=== PATIENT | female | born 1990 | race Hispanic/Latino ===

== ENCOUNTER 2021-01-20 17:29 | Inpatient (IN) | payer BC, SELFPAY ==
[2021-01-20] MEDS ORDERED: Lidocaine 1% (PF) 30 ML VIAL SC PRN ×2 (18:09→18:10)
[2021-01-20] MEDS ORDERED: hydrALAZINE 20 MG/ML VIAL SLOW IVP PRN ×2 (18:09→18:10)
[2021-01-20] MEDS ORDERED: NS / Oxytocin 40 units/1000ml 1,000 ML IV PRN ×2 (18:09→18:10)
[2021-01-20] MEDS ORDERED: Ondansetron PF 4 MG/2 ML Vial IVP PRN ×2 (18:09→18:10)
[2021-01-20] MEDS ORDERED: Promethazine HCl 25 MG/ML VIAL IM PRN ×2 (18:09→18:10)
[2021-01-20] MEDS ORDERED: HYDROcodone/Acetaminophen 5/325 mg Tablet PO PRN ×2 (18:10)
[2021-01-20] MEDS ORDERED: Docusate 100 MG CAP PO PRN (18:10)
[2021-01-20] MEDS ORDERED: Carboprost 250 MCG/ML AMP IM PRN (18:10)
[2021-01-20] MEDS ORDERED: Acetaminophen 500 MG TAB PO PRN (18:10)
[2021-01-20] MEDS ORDERED: Zolpidem Tartrate 5 MG TAB PO PRN (18:10)
[2021-01-20] MEDS ORDERED: Ibuprofen 800 MG TAB PO PRN (18:10)
[2021-01-20] MEDS ORDERED: Methylergonovine 0.2 MG/ML VIAL IM PRN (18:10)
[2021-01-20] MEDS ORDERED: Diphenoxylate HCl/Atropine Tablet PO PRN ×2 (18:10)
[2021-01-20] MEDS ORDERED: Misoprostol 200 MCG TAB PR PRN (18:10)
[2021-01-20 19:35] VITALS: BMI 35.6
[2021-01-20 21:11] LABS: Mean Corpuscular HGB CONC 34.4 g/dL (32.0-36.0); Mean Corpuscular Hemoglobin 30.4 pg (27.0-33.0); Mean Corpuscular Volume 88.3 fl (81.6-98.3); Mean Platelet Volume 10.6 fl (7.4-10.4); Platelet Count 396 10x3/uL (150-450); RBC Distribution Width 12.6 % (11.5-14.5); Red Blood Cell (RBC) Count 4.61 10x6/uL (3.90-5.03); White Blood Cell (WBC) Count 10.8 10x3/uL (3.5-10.5)
[2021-01-20 21:43] LABS: Hep B Surf Ag Non-Reactive S/CO (NonReactive); Syphilis Antibody Nonreactive (Nonreactive); Syphilis Antibody Index 0.04 S/CO (<1.00 Non-Reactive)
[2021-01-20] MEDS: Misoprostol 200 MCG TAB SL SCH (23:08)
[2021-01-20] MEDS: Lactated Ringer's 1,000 ML IV SCH (23:08)
[2021-01-21] MEDS: Misoprostol 200 MCG TAB SL SCH ×5 (03:11→18:09)
[2021-01-21] MEDS: Butorphanol Tartrate 1 MG/ML VIAL SLOW IVP PRN ×4 (03:11→08:21)
[2021-01-21] MEDS ORDERED: Ondansetron PF 4 MG/2 ML Vial IVP PRN (09:23)
[2021-01-21] MEDS ORDERED: diphenhydrAMINE 50 MG/ML VIAL IM PRN (09:23)
[2021-01-21] MEDS ORDERED: diphenhydrAMINE 50 MG/ML VIAL IVP PRN (09:23)
[2021-01-21] MEDS ORDERED: diphenhydrAMINE 25 MG CAP PO PRN (09:23)
[2021-01-21] MEDS ORDERED: Zolpidem Tartrate 5 MG TAB PO PRN (09:23)
[2021-01-21] MEDS ORDERED: Promethazine HCl 25 MG/ML VIAL IM PRN (09:23)
[2021-01-21] MEDS ORDERED: Naloxone HCl 0.4 mg/ml Vial IV PRN (09:23)
[2021-01-21] MEDS ORDERED: Communication Order-Pharmacy FS PRN (09:30)
[2021-01-21] MEDS ORDERED: NS w/ Oxytocin 30 units 500 ML ONE (09:53)
[2021-01-21] MEDS ORDERED: fentaNYL Citrate/PF PCA SYRING 50 ML IV PRN (10:03)
[2021-01-21] MEDS: Lactated Ringer's 1,000 ML IV SCH (18:08)
== END 2021-01-21 18:04 | disposition home or self-care (01) | DRG 807 ==
LOC: CSHLD/OP 17:29 → CSHLD 17:30
PROVIDERS: ADMIT Obstetrics & Gynecology; ATTEND Obstetrics & Gynecology
PROC: 10E0XZZ Delivery of Products of Conception, External Approach (ICD-10-PCS; principal; 2021-01-20)
PROC: 3E0P7VZ Introduction of Hormone into Female Reproductive, Via Natural or Artificial Opening (ICD-10-PCS; 2021-01-20)
DX: O36.4XX0 Maternal care for intrauterine death, not applicable or unspecified (principal); Z37.1 Single stillbirth; Z3A.27 27 weeks gestation of pregnancy; O35.8XX0 Maternal care for other (suspected) fetal abnormality and damage, not applicable or unspecified
CPT/HCPCS: 36415; 76815; 85027; 86780; 86850; 86900; 86901; 87340; J0595

== ENCOUNTER 2022-11-23 17:34 | Day surgery (SDC) | payer SELFPAY ==
[2022-11-23] MEDS ORDERED: hydrALAZINE 20 MG/ML VIAL SLOW IVP PRN (18:28)
[2022-11-23 19:20] LABS: Bilirubin Neg (Negative); Blood, Urine Negative (Negative); Clarity Clear (Clear); Glucose, Urine (Dipstick) Normal (Negative); Ketone, Urine Negative (Negative); Leukocyte Negative (Negative); Nitrite Negative (Negative); Protein, Urine (Dipstick) Negative (Neg-Trace); Urobilinogen Normal mg/dL (Less than 2)
== END 2022-11-23 22:15 | disposition home or self-care (01) ==
LOC: CSHLD/OP 17:34
PROVIDERS: ATTEND Obstetrics & Gynecology
DX: O26.892 Other specified pregnancy related conditions, second trimester (principal); R10.30 Lower abdominal pain, unspecified; Z3A.23 23 weeks gestation of pregnancy
CPT/HCPCS: 76815; 81003; 99282

== ENCOUNTER 2023-02-21 15:02 | Day surgery (SDC) | payer BC, SELFPAY ==
[2023-02-21] MEDS ORDERED: hydrALAZINE 20 MG/ML VIAL SLOW IVP PRN (15:57)
[2023-02-21 16:26] LABS: #Eosinphils 0.1 10x3/uL (0.0-0.5); #Monocytes 0.6 10x3/uL (0.0-1.1); %Basophils 0.4 % (0.0-2.0); %Eosinophils 1.1 % (0.0-6.0); %Lymphocytes 24.2 % (18.0-47.0); %Monocytes 7.4 % (0.0-10.0); %Neutrophils 66.2 % (40.0-75.0); Hemoglobin 9.2 g/dL (12.0-15.5); Mean Corpuscular HGB CONC 31.5 g/dL (32.0-36.0); Mean Corpuscular Hemoglobin 25.3 pg (27.0-33.0); Mean Corpuscular Volume 80.2 fl (81.6-98.3); Mean Platelet Volume 11.5 fl (7.4-10.4); Platelet Count 411 10x3/uL (150-450); RBC Distribution Width 15.1 % (11.5-14.5); Red Blood Cell (RBC) Count 3.64 10x6/uL (3.90-5.03); White Blood Cell (WBC) Count 7.5 10x3/uL (3.5-10.5)
[2023-02-21 16:40] LABS: ALT (SGPT) 43 U/L (8-55); AST (SGOT) 27 U/L (5-34); Albumin 3.2 g/dL (3.5-5.0); Alkaline Phosphatase 172 U/L (40-110); Anion Gap 15 mmol/L (10-20); BUN (Urea Nitrogen) 8 mg/dL (7.0-18.7); Bilirubin, Total 0.5 mg/dL (0.2-1.2); Calc. Creatinine Clearance 0 mL/min (70-130); Calcium 8.8 mg/dL (7.8-10.44); Carbon Dioxide 17 mmol/L (22-29); Chloride 110 mmol/L (98-107); Estimated GFR 125; Globulin 2.4 g/dL (2.4-3.5); Glucose 78 mg/dL (70-105); Potassium 4.7 mmol/L (3.5-5.1); Protein, Total 5.6 g/dL (6.0-8.3); Sodium 137 mmol/L (136-145)
[2023-02-21 17:13] LABS: Creatinine, Urine 27.25 mg/dL (47-110)
== END 2023-02-21 17:50 | disposition home health service (06) ==
LOC: CSHLD/OP 15:02
PROVIDERS: ATTEND Obstetrics & Gynecology
DX: O36.8130 Decreased fetal movements, third trimester, not applicable or unspecified (principal); O26.893 Other specified pregnancy related conditions, third trimester; R10.9 Unspecified abdominal pain; O99.013 Anemia complicating pregnancy, third trimester; D64.9 Anemia, unspecified; Z3A.36 36 weeks gestation of pregnancy; Z79.899 Other long term (current) drug therapy
CPT/HCPCS: 36415; 80053; 82570; 84156; 85025; 99283